=== PATIENT | female | born 1970 | race Caucasian/White ===

== ENCOUNTER → 2021-01-23 07:23 | Outpatient (BNVA) | payer OTHER, SELFPAY | PROVIDERS: Visit Provider Physician Assistant ==

== ENCOUNTER 2021-01-28 08:31 | Outpatient (REF) | payer OTHER, SELFPAY ==
[2021-01-28 11:25] LABS: MANUAL DIFF FLAG NO
[2021-01-28 11:47] LABS: Basophils Percent Auto 0.4 % (0-2); Eosinophils Absolute Auto 0.2 X10*3/uL (0.0-0.4); Hematocrit 43.9 % (37-47); Hemoglobin 14.2 g/dl (12.0-16.0); Imm Gran Abs Auto 0.01 X10*3/uL (0.00-0.03); Imm Gran Pct Auto 0.1 % (0.0-0.4); Lymphocytes Absolute Auto 2.1 X10*3/uL (1.2-4.9); Lymphocytes Percent Auto 31.2 % (20-40); Mean Corpuscular HGB Conc 32.3 g/dl (31.0-35.0); Mean Corpuscular Volume 83.6 fL (80-98); Mean Platelet Volume 9.6 fL (9.4-12.3); Monocytes Absolute Auto 0.4 X10*3/uL (0.1-1.2); Monocytes Percent Auto 5.2 % (2-11); Neutrophils Absolute Auto 4.1 X10*3/uL (2.0-8.3); Neutrophils Percent Auto 60.1 % (45-73); Platelet Count 285 X10*3/uL (160-400); Red Blood Count 5.25 X10*6/uL (4.20-5.50); White Blood Count 6.8 X10*3/uL (4.8-10.8)
[2021-01-28 12:15] LABS: C Reactive Protein 0.55 mg/dL (< or = 0.50)
[2021-01-28 12:27] LABS: Gamma Glutamyl Transpeptidase 33 U/L (7-33)
[2021-01-28 13:16] LABS: Erythrocyte Sedimentation Rate 11 MM/HR (0-20)
[2021-01-31 11:27] LABS: Transglutaminase IgA 1 U/mL
== END 2021-01-28 08:32 | disposition home or self-care (01) ==
LOC: HO.HMGCLDS 08:31
PROVIDERS: PCP Internal Medicine; Visit Provider Physician Assistant
DX: R19.7 Diarrhea, unspecified (principal); K92.2 Gastrointestinal hemorrhage, unspecified; R74.01 Elevation of levels of liver transaminase levels
CPT/HCPCS: 36415; 82977; 83516; 85025; 85652; 86140

== ENCOUNTER 2021-02-01 10:25 | Day surgery (SDC) | payer OTHER, SELFPAY ==
[2021-01-29 10:39] VITALS: BMI 38.0
--- NOTE | 2021-01-31 09:48 | HO.ANESPROP2 ---
Documented by User: Celine Miller 01/31/21 09:50 HPI - Anesthesia Eval Consult details Narrative: 50yo F for Colonoscopy [facility] Active Problems Active Problems: All Active Problems (Updated 01/23/21 @ 08:12 by Guillermina Marie PA-C) GI bleed (Acute) Left lower quadrant abdominal pain (Acute) Past Medical History Medical History Cholelithiasis Gestational diabetes GI bleed Hemorrhoids Hernia of abdominal wall History of blood transfusion IBS (irritable bowel syndrome) Inguinal hernia Left lower quadrant abdominal pain Family History Family History Father Hypertension Mother TIA (transient ischemic attack) CVA (cerebral vascular accident) Brother Multiple sclerosis Hypertension Sister Diabetes mellitus Surgical History Surgical History History of incisional hernia repair Hx of exploratory laparotomy S/P laparoscopic cholecystectomy Social History Social History Household Members: Spouse and Children Alcohol intake: never Smoking Status: Never smoker Use of substances other than those prescribed or required for medical reasons: No Advance Directives Information Provided: No Current occupational status: employed Current occupation: [employer] Allergies Allergy/AdvReac Type Severity Reaction Status Date / Time carisoprodol [From Soma] Allergy Severe PARALYSIS Verified 02/01/21 11:04 adhesive tape [Adhesive Tape] Allergy Mild BLISTERS Verified 02/01/21 11:04 latex [Latex] Allergy Mild RASH Verified 02/01/21 11:04 Exam Exam Date and Time: January 31, 2021 0948 Height,Weight and Vital Signs: Height 5 ft Weight 88.5 kg Pertinent Lab Results Pertinent Lab Results: Laboratory Tests 01/28/21 08:38 WBC 6.8 Hgb 14.2 Hct 43.9 Plt Count 285 Assessment and Plan Assessment Anesthesia Assessment: Chart Reviewed Documented by User: Linda Cr 02/01/21 12:18 PMFSH Past Medical History Medical History Cholelithiasis Gestational diabetes GI bleed Hemorrhoids Hernia of abdominal wall History of blood transfusion IBS (irritable bowel syndrome) Inguinal hernia Left lower quadrant abdominal pain Family History Family History Father Hypertension Mother TIA (transient ischemic attack) CVA (cerebral vascular accident) Brother Multiple sclerosis Hypertension Sister Diabetes mellitus Surgical History Surgical History History of incisional hernia repair Hx of exploratory laparotomy S/P laparoscopic cholecystectomy Social History Social History Household Members: Spouse and Children Alcohol intake: never Smoking Status: Never smoker Use of substances other than those prescribed or required for medical reasons: No Advance Directives Information Provided: No Current occupational status: employed Current occupation: [employer] Meds Allergies Allergy/AdvReac Type Severity Reaction Status Date / Time carisoprodol [From Soma] Allergy Severe PARALYSIS Verified 02/01/21 11:04 adhesive tape [Adhesive Tape] Allergy Mild BLISTERS Verified 02/01/21 11:04 latex [Latex] Allergy Mild RASH Verified 02/01/21 11:04 Exam Airway Mallampati Class: II TM Dist: >3cm Neck ROM: Full Loose/Missing/Broken Teeth: No Heart: RRR Lungs: CTA Assessment and Plan Assessment Anesthesia Assessment: Anesthesia Plan Discussed and Chart Reviewed Final Anesthetic Review NPO: Yes ASA Class: II Final Preanesthetic Review: Meds/Allgs Chart Reviewed, Consent Obtained/Reviewed and Anes Risks/Benef Reviewed Patient Risk: Low Procedure Risk: Low Anesthetic Plan Anesthetic Plan: MAC: Disposition: Standard PACU
[2021-02-01 11:18] LABS: UPreg QC Valid YES; Urine Pregnancy NEGATIVE (NEGATIVE)
[2021-02-01 11:20] VITALS: BP 122/59; PULSE 76; RESP 18; TEMP 36.7; O2SAT 96
[2021-02-01] MEDS: Lactated Ringers 1,000 ML 100 ML IVCONT (11:32)
--- NOTE | 2021-02-01 12:14 | PM.OP ---
Brief Operative Note Date of Service: 02/01/21 Pre-op diagnosis: Colon cancer screening, abdominal pain, bloating, bloody diarrhea and hematochezia Post-op diagnosis: other (Colon polyp, diverticulosis, hemorrhoids) Procedure: COLONOSCOPY TO CECUM WITH BIOPSIES Consent: Indications for the procedure and potential complications of bleeding, perforation, reaction to medications and missed diagnosis were discussed with the patient and informed consent was obtained. Instrument: Olympus PCF H 190 L variable stiffness pediatric colonoscope Monitoring: Vital signs and clinical assessment, intermittent blood pressure monitoring, continuous EKG monitoring, Pulse oximetry and Carbon Dioxide monitoring were done throughout the procedure. Colon withdrawl time was 21 minutes. Procedure: The patient was placed in the left lateral decubitis position and pre-procedure medications were administered. After a digital rectal examination of the ano-rectum, the video colonoscope was inserted into the rectum and advanced through the colon to the cecum. The colonoscope was slowly withdrawn in a retrograde panoramic fashion and the colon mucosa was carefully examined including a retroflexed view of the rectum. Findings and interventions are described below. Procedure Difficulty: Colon was long and tortuous and there was recurrent loop formation. No maneuvers were required Findings: Terminal Ileum: Distal 10-15 cm was examined and appeared normal Cecum: Normal Ascending Colon: Normal - random biopsies were obtained from the right colon. Transverse Colon: Normal Descending Colon: 3-4 mm diminutive appearing polyp - removed with the cold biopsy Sigmoid Colon: Moderate diverticulosis. Random biopsies were obtained from the left colon. Rectum: A few 2-3 mm ulcers in the proximal rectum - biopsied. Ano-rectum: Moderate internal hemorrhoids Colon preparation: Excellent Impression and Post Procedure Diagnosis: Colonoscopy Findings: One tiny polyp removed. A few 2-3 mm ulcers in the proximal rectum - biopsied (likely due to NSAID use or proctitis) Random biopsies were obtained from the right colon, left colon and rectum Moderate diverticulosis seen in the sigmoid colon Moderate hemorrhoids on retroflexed exam - likely source if rectal bleeding. Plan: Await pathology results Patient has an appointment on 02/13/21 in the [facility] with KAYLA Valle. Repeat Colonoscopy interval based on path results - in 5 years if polyps are adenomatous and 10 years if polyps are hyperplastic. Above findings were reviewed with the patient and colon polyps, hemorrhoids, IBS and diverticulosis handouts were given in the discharge area. Patient was advised a trial of a fiber supplement for diarrhea and hemorrhoids. Surgeon: Carlitos Qiu MD Anesthesia: MAC (Dr Pretty & Dr Cr) Was an Guest Experience Representative used for this Procedure?: No Guest Experience Representative: Terrance Mendoza Estimated blood loss (mL): 0 Pathology: other (A- RIGHT SIDE COLON BXS R/O MICROSCOPIC COLITIS B- LEFT SIDE COLON BXS R/O MICROSCOPIC COLITIS C- DESCENDING COLON POLYP D- RECTAL BXS) Condition: stable Disposition: PACU
--- NOTE | 2021-02-01 12:14 | MHC.SHP ---
Pre-Procedural Eval Section A The patient is an INPATIENT: No The History & Physical has been completed within 30 days and I have reviewed it.: Yes Section B Chief Complaint: GI Bleed Allergies: Allergies Allergy/AdvReac Type Severity Reaction Status Date / Time carisoprodol [From Soma] Allergy Severe PARALYSIS Verified 02/01/21 11:04 adhesive tape [Adhesive Tape] Allergy Mild BLISTERS Verified 02/01/21 11:04 latex [Latex] Allergy Mild RASH Verified 02/01/21 11:04 Review of Systems Sugical H&P ROS: Negative: Constitution, Cardiovascular and Respiratory and Yes, Specify: Gastrointestinal (Abdominal pain, bloating, bloody diarrhea) Exam Surgical H&P Exam: Normal: Heart, Normal: Lungs and Normal: Extremities and Significant Findings: Abdomen (Mild diffuse tenderness on palpation) Plan Diagnosis/Plan: Unchanged I have reviewed the history and physical and performed a pertinent physical examination on my patient. No changes have occurred unless specified.
[2021-02-01 13:10] VITALS: BP 108/52; PULSE 87; RESP 18; TEMP 36.2; O2SAT 99
[2021-02-01 13:25] VITALS: BP 106/63; PULSE 73; RESP 18; TEMP 36.2; O2SAT 99
== END 2021-02-01 14:00 | disposition home or self-care (01) ==
PROVIDERS: Nurse Practitioner; PCP Internal Medicine; Visit Provider Internal Medicine Gastroenterology
PROC: 0DJD8ZZ Inspection of Lower Intestinal Tract, Via Natural or Artificial Opening Endoscopic (ICD-10-PCS; CPT 45378; principal; 2021-02-01 11:50)
DX: Z12.11 Encounter for screening for malignant neoplasm of colon (principal); K63.5 Polyp of colon; K57.30 Diverticulosis of large intestine without perforation or abscess without bleeding; K64.8 Other hemorrhoids; K62.89 Other specified diseases of anus and rectum; K92.1 Melena; R19.7 Diarrhea, unspecified; Z90.49 Acquired absence of other specified parts of digestive tract; Z88.8 Allergy status to other drugs, medicaments and biological substances; Z91.040 Latex allergy status
CPT/HCPCS: 45380; 81025; 88305

== ENCOUNTER → 2021-02-13 11:16 | Outpatient (BNVA) | payer OTHER, SELFPAY | PROVIDERS: PCP Internal Medicine; Visit Provider Physician Assistant ==

== ENCOUNTER 2021-11-19 08:57 | Outpatient (REF) | payer OTHER, SELFPAY ==
[2021-11-19 11:36] LABS: MANUAL DIFF FLAG NO
[2021-11-19 11:50] LABS: Basophils Percent Auto 0.4 % (0-2); Eosinophils Absolute Auto 0.2 X10*3/uL (0.0-0.4); Eosinophils Percent Auto 2.8 % (0-4); Hematocrit 43.8 % (37.0-47.0); Hemoglobin 14.3 g/dl (12.0-16.0); Imm Gran Abs Auto 0.03 X10*3/uL (0.00-0.03); Imm Gran Pct Auto 0.4 % (0.0-0.4); Lymphocytes Absolute Auto 2.3 X10*3/uL (1.2-4.9); Lymphocytes Percent Auto 30.4 % (20-40); Mean Corpuscular HGB Conc 32.6 g/dl (31.0-35.0); Mean Corpuscular Hemoglobin 26.9 pg (27.0-33.0); Mean Corpuscular Volume 82.3 fL (80.0-98.0); Mean Platelet Volume 9.5 fL (9.4-12.3); Monocytes Absolute Auto 0.3 X10*3/uL (0.1-1.2); Monocytes Percent Auto 4.6 % (2-11); Neutrophils Absolute Auto 4.6 x10*3/uL (2.0-8.3); Neutrophils Percent Auto 61.4 % (45-73); Platelet Count 313 X10*3/uL (160-400); Red Blood Count 5.32 X10*6/uL (4.20-5.50); Red Cell Distribution Width 12.7 % (11.0-16.0); White Blood Count 7.4 X10*3/uL (4.8-10.8)
[2021-11-19 12:08] LABS: Alanine Aminotransferase 24 U/L (0-31); Albumin Level 4.5 g/dL (3.5-5.0); Alkaline Phosphatase 82 U/L (39-117); Anion Gap 11 (12-20); Aspartate Amino Transferase 17 U/L (5-31); Bilirubin Total 0.6 mg/dL (0.0-1.0); Blood Urea Nitrogen 17 mg/dL (9-16); Calcium 9.6 mg/dL (8.4-10.2); Carbon Dioxide 27 mmol/L (22-29); Chloride 107 mmol/L (96-108); Cholesterol 244 mg/dL; Estimated Glomerular Filt Rate > 60; Glucose Fasting 114 mg/dL (60-99); HDL Cholesterol 56 mg/dL; LDL Cholesterol Calculated 166 mg/dl; Potassium 4.5 mmol/L (3.3-5.1); Sodium 140 mmol/L (135-145); Total Protein 7.7 g/dL (6.5-8.0); Triglycerides 110 mg/dL
[2021-11-19 12:16] LABS: TSH reflex Free T4 1.27 uIU/mL (0.32-4.0); Vitamin D 25-OH Total 34.6 ng/mL (>30)
== END 2021-11-19 08:58 | disposition home or self-care (01) ==
LOC: HO.HMGCLDS 08:57
PROVIDERS: PCP Internal Medicine; Visit Provider Internal Medicine
DX: Z00.01 Encounter for general adult medical examination with abnormal findings (principal); K21.9 Gastro-esophageal reflux disease without esophagitis; E66.9 Obesity, unspecified; K76.0 Fatty (change of) liver, not elsewhere classified; K58.9 Irritable bowel syndrome, unspecified; R10.13 Epigastric pain
CPT/HCPCS: 36415; 80053; 80061; 82306; 84443; 85025

== ENCOUNTER 2022-01-06 08:24 | Outpatient (REF) | payer OTHER, SELFPAY ==
--- NOTE | ~2022-01-06 | US_ITS ---
EXAMINATION: US ABDOMEN COMPLETE CLINICAL INFORMATION: Epigastric pain. COMPARISON: None TECHNIQUE: Real-time imaging of the abdominal viscera. FINDINGS: PANCREAS: Normal. ABDOMINAL AORTA: The proximal, mid, and distal segments are normal in caliber. INFERIOR VENA CAVA: Visualized portions are normal. LIVER: Normal. The liver is normal in size. The liver contour is normal. Parenchymal echogenicity is normal. No focal hepatic lesion. There is no intrahepatic biliary duct dilatation seen. GALLBLADDER: Surgically absent. COMMON BILE DUCT: Normal in caliber measuring 0.6 cm in diameter. RIGHT KIDNEY: Normal. No hydronephrosis. No renal calculi or focal parenchymal lesions. The kidney measures 10.7 cm in maximum dimension. LEFT KIDNEY: At the interpolar aspect laterally, a 1.7 cm anechoic, simple cyst is seen. No hydronephrosis or renal calculi. The kidney measures 9.8 cm in maximum dimension. SPLEEN: Normal. The spleen measures 10.0 cm in maximum dimension. FREE FLUID: None. US/US abdomen complete IMPRESSION: A 1.7 cm simple left renal cyst is incidentally seen. The examination is otherwise unremarkable.
== END 2022-01-06 08:25 | disposition home or self-care (01) ==
LOC: HO.HMGCX 08:24
PROVIDERS: Visit Provider Internal Medicine
DX: R10.13 Epigastric pain (principal)
CPT/HCPCS: 76700

== ENCOUNTER 2022-03-31 08:15 | Outpatient (REF) | payer OTHER, SELFPAY ==
--- NOTE | ~2022-03-31 | US_ITS ---
EXAMINATION: US RETROPERITONEAL LIMITED (RENAL ONLY) CLINICAL INFORMATION: Cyst of kidney, ? recent UTI per patient and abdominal pain. COMPARISON: Ultrasound abdomen complete 01/06/2022. TECHNIQUE: Real-time imaging of the kidneys. FINDINGS: RIGHT KIDNEY: 10.2 x 4.5 x 6.6 cm (SAG x AP x TRV). The kidney is normal in size, contour, and echogenicity. Renal cortical thickness is normal. No calculi or focal parenchymal lesions. No hydronephrosis. LEFT KIDNEY: 9.3 x 5.2 x 5.6 cm (SAG x AP x TRV). The kidney is normal in size, contour, and echogenicity. Renal cortical thickness is normal. No renal calculi. There is slight prominence of the left mid renal calyx but no hydronephrosis. 1.7 cm anechoic simple appearing cyst of the left mid kidney. US/US renal BI IMPRESSION: Slight prominence of the left mid renal calyx but no hydronephrosis. Unchanged simple cyst in the left mid kidney..
== END 2022-03-31 08:16 | disposition home or self-care (01) ==
LOC: HO.HMGCX 08:15
PROVIDERS: PCP Internal Medicine; Visit Provider Internal Medicine
DX: N28.1 Cyst of kidney, acquired (principal)
CPT/HCPCS: 76775

== ENCOUNTER 2023-05-27 10:02 | Outpatient (REF) | payer OTHER, SELFPAY ==
--- NOTE | ~2023-05-27 | FL_ITS ---
EXAMINATION: FL BARIUM SWALLOW CLINICAL INFORMATION: Dysphagia. COMPARISON: None available. TECHNIQUE: Barium swallow examination is performed using fluoroscopic evaluation in addition to multiple fluoroscopic spot views. The patient is imaged both upright and prone and using both thick and thin sulfate along with 0.5-inch diameter barium tablet. Fluoroscopy time: 1.5 minutes DAP: 5.573 Gycm2 Images: 39 FINDINGS: There is normal elevation of the soft palate while saying 'candy.' There is normal apposition of the focal cords while saying 'E.' Patient swallowed thin and thick barium and 0.5-inch diameter barium tablet without difficulty. No nasopharyngeal reflux was identified. No Zenker's diverticulum identified. There is mild cricopharyngeal hypertrophy present. There is normal esophageal motility. No persistent stricture identified. No hiatal hernia is seen. No gastroesophageal reflux noted. The 0.5-inch diameter barium tablet passed freely into the stomach. FL/FL barium swallow IMPRESSION: Normal esophagram.
== END 2023-05-27 10:03 | disposition home or self-care (01) ==
LOC: HO.XRAY 10:02
PROVIDERS: PCP Internal Medicine; Visit Provider Internal Medicine
DX: R13.10 Dysphagia, unspecified (principal)
CPT/HCPCS: 74220

== ENCOUNTER → 2023-05-27 10:03 | Outpatient (BNV) | payer OTHER, SELFPAY | PROVIDERS: PCP Internal Medicine; Visit Provider Radiology Diagnostic Radiology | DX: R13.10 Dysphagia, unspecified (principal) | CPT/HCPCS: 74221 ==